=== PATIENT | female | born 1995 | race Caucasian/White ===

== ENCOUNTER 2017-02-12 19:35 | Emergency (ER) | payer OTHER ==
[~2017-02-12] VITALS: Ht 157.5 cm; Wt 59.1 kg
[2017-02-12 19:37] VITALS: TEMP 98.2
[2017-02-12 20:33] VITALS: BP 116/78
[2017-02-12 20:50] LABS: BASO # 0.1 (0.0-0.2); EOS # 0.1 (0.0-0.7); EOS % 0.5 % (0-4.0); GRAN # 6.9 (1.4-6.5); GRAN % 65.9 % (42.2-75.2); HEMATOCRIT 41.8 % (35.0-45.0); HEMOGLOBIN 14.2 g/dl (12.0-15.0); LYMPH # 2.8 (1.2-3.4); LYMPH % 26.9 % (20.0-51.0); MEAN CELL VOLUME 93 fl (80.0-95.0); MEAN CORPUSCULAR HEMOGLOBIN 32 pg (26.0-32.0); MEAN CORPUSCULAR HGB CONC 34 g/dl (33.0-37.0); MEAN PLATELET VOLUME 9.2 fl (7.4-10.4); MONO # 0.6 (0.1-0.6); MONO % 5.6 % (1.7-9.3); PLATELET COUNT 326 K/mm3 (130-400); RED BLOOD COUNT 4.48 M/mm3 (4.10-5.30); WHITE BLOOD COUNT 10.4 K/mm3 (4.8-10.8)
[2017-02-12 21:07] LABS: ANION GAP 10 mmol/L (7-16); BLOOD UREA NITROGEN 18 mg/dL (7-17); CALCIUM 9.7 mg/dL (8.4-10.2); CARBON DIOXIDE 26 mmol/L (22-30); CHLORIDE 104 mmol/L (98-107); CREATININE, serum 0.74 mg/dL (0.52-1.25); GLUCOSE 100 mg/dL (74-106); POTASSIUM 3.7 mmol/L (3.4-5.0); SODIUM 141 mmol/L (137-145)
[2017-02-12 21:30] LABS: TROPONIN-I < 0.012 ng/mL (0.000-0.034)
[2017-02-12 21:31] VITALS: PULSE 68
== END 2017-02-12 21:32 | disposition home or self-care (01) ==
LOC: COL.ER 19:35
PROVIDERS: Physician Assistant
DX: R51 Headache (principal); R07.81 Pleurodynia; L70.9 Acne, unspecified; Z32.02 Encounter for pregnancy test, result negative